=== PATIENT | male | born 1950 | race Caucasian/White ===

== ENCOUNTER 2024-03-30 12:32 | Outpatient (OUT) | payer MEDICARE, SELFPAY ==
--- NOTE | 2024-03-30 13:00 | CA_ITS ---
Patient Name: GIACOMO VOGEL MR#: [id number] : 1950 Exam Date: 03/30/2024 Ordering Doctor: DR SAKINA CHANDRA M.D. ECHOCARDIOGRAM REPORT PROCEDURE: CA ECHO DOPPLER COMPLETE INDICATIONS: Dyspnea, COPD, smoker COMPARISON: None. DESCRIPTION: COMPLETE ECHOCARDIOGRAM Real-time transthoracic echocardiography with 2D, M-mode, spectral and color flow Doppler performed. QUALITY: Technical quality was good. 69 , 146#, BP 142/88 LEFT VENTRICLE: Normal chamber size. Thickened septal wall. LV EF: Global LV systolic function is normal; visually estimated ejection fraction is 60 to 65%. No significant wall motion abnormalities. DIASTOLIC: Unable to assess diastolic function. ATRIAL SEPTUM: Visually appears intact. LEFT ATRIUM: Normal chamber size. RIGHT ATRIUM: Normal chamber size. RIGHT VENTRICLE: Normal chamber size. Normal right ventricular systolic function. TRICUSPID VALVE: Normal mobility and thickness. No stenosis with no regurgitation. Unable to assess right-sided pressures due to lack of measurable tricuspid regurgitation. MITRAL VALVE: Mildly thickened with normal mobility. No evidence of mitral valve stenosis. Mild mitral annular calcification. No mitral regurgitation. AORTIC VALVE: Normal trileaflet appearance. Severely calcified aortic valve. Doppler velocity suggests mild aortic valve stenosis. Trivial aortic regurgitation. AORTIC ROOT: Aorta is dilated at Sinuses of Valsalva (4.1 cm). Ascending aorta is normal in size. PULMONIC VALVE: Normal thickness and mobility. No stenosis. No regurgitation. PERICARDIUM: Anterior free space; trivial effusion versus fat pad. IVC: Collapses with inspirations. CONCLUSION: 1. Global left ventricular systolic function is normal; visually estimated ejection fraction is 60 to 65% 2. Normal right ventricular size and systolic function 3. Mild aortic valve stenosis 4. Mildly dilated aortic root 5. Anterior free space; trivial effusion versus fat pad Adult Echocardiography Procedure Report Left Ventricle LVEDD (3.7 - 5.6 cm): 4.63 cm LVESD (2.2 - 4.0 cm): 3.23 cm LVIVS thickness (0.6 - 1.2 cm): 1.26 cm LVPW thickness (0.5 - 1.0 cm): 1.00 cm E - e': 7.98 LVOT Max Gradient: 3.20 mm[Hg] LVOT Area (cm2): 0.89 m/s Peak Velocity (LVOT): 0.89 m/s Mean Velocity (LVOT): 0.60 m/s LVOT Diameter 2.00 cm Left Atrium LA Volume Index (2D A2C): 23.79 ml/m2 Left Atrium Systolic Dimension: 3.63 cm Mitral Valve MV E to A Ratio: 0.83 Mitral Valve A-Wave Peak Velocity: 0.80 m/s Mitral Valve E-Wave Peak Velocity: 0.66 m/s Right Ventricle Aorta AO Root Diam: 4.11 cm Ascending Ao Diam: 3.33 cm Aortic Valve AoV Area (Peak Pedro): 1.36 cm2, 1.42 cm2 AoV Area (VTI): 1.69 cm2, 1.90 cm2 Peak Velocity(Antegrade Flow): 1.98 m/s, 2.06 m/s Peak Gradient(Antegrade Flow): 15.62 mm[Hg], 16.97 mm[Hg] Mean Velocity(Antegrade Flow): 1.19 m/s, 1.28 m/s Mean Gradient(Antegrade Flow): 6.77 mm[Hg], 7.82 mm[Hg] Velocity Time Integral: 33.74 cm, 38.01 cm Tricuspid Valve Pulmonic Valve Peak Gradient: 2.65 mm[Hg], 2.95 mm[Hg] Right Atrium Right Atrium Systolic Pressure: 28.33 ml, 28.33 ml Dictated by: Jono Dowell M.D. on 03/31/2024 at 13:21 Approved by: Jono Dowell M.D. on 03/31/2024 at 13:26
== END 2024-03-30 12:33 | disposition home or self-care (01) ==
LOC: CARD 12:32
PROVIDERS: Visit Provider Internal Medicine Interventional Cardiology
DX: R06.02 Shortness of breath (principal)
CPT/HCPCS: 93306

== ENCOUNTER 2024-04-15 10:35 | Outpatient (OUT) | payer MEDICARE, SELFPAY ==
--- OUTSIDE RECORDS SUMMARY | 2024-04-15 10:44 | XMS_ITS | CCD ---
Author Organization [facility] Care Team Providers Care Electrical And Instrument Engineer Name Role Phone Diann Kirk MD Primary Care Provider DIANN KIRK Attending Unavailable DIANN KIRK Referring Unavailable SYDNI KIRKHAMRANDI Tovar Primary Care Unavailable LAKHWINDER ARENAS Attending Unavailable JUVE WALKER Referring Unavailable YELENA, MUHAMID La Primary Care Unavailable JUVE WALKER Attending Unavailable JESU JEAN Referring Unavailable YELENA, MUHAMID M Primary Care Unavailable JUVE WALKER Referring Unavailable YELENA, MUHAMID M Primary Care Unavailable LAKHWINDER ARENAS Attending Unavailable LAKHWINDER ARENAS Referring Unavailable YELENA, MUHAMID M Primary Care Unavailable LAKHWINDER ARENAS Attending Unavailable LAKHWINDER ARENAS Referring Unavailable YELENA, MUHAMID M Primary Care Unavailable SAKINA CHANDRA Attending Unavailable Medications Current Medications Medication Drug Class(es) Dates Sig (Normalized) Sig (Original) [id number] 200 actuat albuterol 0.09 mg/actuat metered dose inhaler (14 sources) beta2-Adrenergic Agonist Start: 11-03-2023 End: 01-25-2024 take 2 puff(s) by mouth every six hours as needed for wheezing albuterol (PROVENTIL HFA;VENTOLIN HFA) 90 mcg/actuation inhaler Indications: Pulmonary emphysema, unspecified emphysema type ([facility]) INHALE 2 PUFFS BY MOUTH EVERY 6 HOURS NEEDED FOR WHEEZING OR SHORTNESS OF BREATH 18 g 3 01/25/2024 Active Start: 08-06-2023 End: 11-03-2023 take 2 puff(s) by inhalation every six hours as needed for wheezing albuterol (PROVENTIL HFA;VENTOLIN HFA) 90 mcg/actuation inhaler Indications: Pulmonary emphysema, unspecified emphysema type (CMS-HCC) Inhale 2 puffs every 6 (six) hours as needed for wheezing or shortness of breath. 18 g 3 08/06/2023 11/03/2023 Discontinued amLODIPine 5 mg oral tablet (11 sources) Dihydropyridine Calcium Channel Phyllis Start: 12-28-2023 take 1 tablet by mouth in the morning amLODIPine (NORVASC) 5 mg tablet Take 1 tablet (5 mg total) by mouth in the morning. 90 tablet 3 12/28/2023 Active Start: 10-30-2023 take 1 tablet by mt th in the morning amLODIPine (NORVASC) 5 mg tablet Take 1 tablet (5 mg total) by mouth in the morning. 30 tablet 3 10/30/2023 Active amoxicillin 500 mg oral capsule (4 sources) Penicillin-class Antibacterial Start: 12-14-2023 End: 12-24-2023 take 1 capsule by mouth three times daily amoxicillin (AMOXIL) 500 mg capsule Indications: Dental infection Take 1 capsule (500 mg total) by mouth 3 (three) times a day for 10 days. 30 capsule 0 12/14/2023 12/24/2023 Active aspirin 81 mg delayed release oral tablet (11 sources) Platelet Aggregation Inhibitor, Nonsteroidal Anti-inflammatory Drug take 1 tablet by mouth in the morning aspirin 81 mg Take 1 tablet (81 mg total) by mouth in the morning. 0 Active atorvastatin 40 mg oral tablet (12 sources) HMG-CoA Reductase Inhibitor Start: 11-11-2023 End: 11-17-2023 take 1 tablet by mouth in the morning atorvastatin (LIPITOR) 40 mg tablet Indications: Dyslipidemia Take 1 tablet (40 mg total) by mouth in the morning. 90 tablet 11 11/17/2023 Active Start: 10-30-2023 take 1 tablet by mt th in the morning atorvastatin (LIPITOR) 20 mg tablet Take 1 tablet (20 mg total) by mouth in the morning. 30 tablet 11 10/30/2023 Active 120 actuat budesonide 0.16 mg/actuat / formoterol fumarate 0.0048 mg/actuat / glycopyrrolate 0.009 mg/actuat metered dose inhaler (13 sources) Corticosteroid, beta2-Adrenergic Agonist Start: 09-17-2023 End: 11-06-2023 take 1 puff(s) by inhalation once daily kirusiopdf-rakfpixu-mimnzcohch (BREZTRI AEROSPHERE) 160-9-4.8 mcg/actuation HFA aerosol inhaler Indications: Pulmonary emphysema, unspecified emphysema type (CMS-HCC) INHALE 1 PUFF EVERY DAY 10.7 g 2 11/06/2023 Active chlorhexidine gluconate 1.2 mg/ml mouthwash (12 sources) Start: 09-17-2023 take 15 mL by mouth in the morning chlorhexidine (PERIDEX) 0.12 % solution Indications: Oral hygiene poor , Dental infection Apply 15 mL to the mouth or throat in the morning and 15 mL before bedtime. 473 mL 1 09/17/2023 Active cilostazol 100 mg oral tablet (9 sources) Phosphodiesterase 3 Inhibitor Start: 11-17-2023 take 1 tablet by mouth in the morning, then take 1 tablet by mouth at bedtime cilostazoL (PLETAL) 100 mg tablet Indications: Claudication ([facility]) Take 1 tablet (100 mg total) by mouth in the morning and 1 tablet (100 mg total) before bedtime. 180 tablet 2 11/17/2023 Active 24 hr fexofenadine hydrochloride 180 mg / pseudoephedrine hydrochloride 240 mg extended release oral tablet (14 sources) alpha-Adrenergic Agonist, Histamine-1 Receptor Antagonist Start: 08-06-2023 End: 12-15-2023 take 1 tablet by mouth once in the morning fexofenadine-pseudoephedrine (KARLA-D 24) 180-240 mg per 24 hr tablet Indications: Allergy, subsequent encounter Take 1 tablet by mouth in the morning. 90 tablet 1 12/15/2023 Active metoprolol tartrate 25 mg oral tablet (11 sources) beta-Adrenergic Phyllis Start: 10-30-2023 take 0.5 tablet by mouth in the morning, then take 0.5 tablet by mouth at bedtime metoprolol tartrate (LOPRESSOR) 25 mg tablet Take 0.5 tablets (12.5 mg total) by mouth in the morning and 0.5 tablets (12.5 mg total) before bedtime. 180 tablet 3 10/30/2023 Active mirtazapine 15 mg disintegrating oral tablet (13 sources) Start: 09-30-2023 End: 11-06-2023 mirtazapine (REMERON BETTY-TAB ) 15 mg disintegrating tablet Indications: Drug-induced insomnia (CMS-HCC) DISSOLVE 1 TABLET(15 MG) ON THE TONGUE EVERY NIGHT 90 tablet 2 11/06/2023 Active 24 hr nicotine 0.583 mg/hr transdermal system (12 sources) Cholinergic Nicotinic Agonist Start: 03-26-2023 apply 1 dose transdermal route once daily nicotine (NICODERM CQ) 14 mg/24 hr Indications: Tobacco abuse Place 1 patch on the skin daily. 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, in remission] Onset: 02-26-2023 02-26-2023 Chronic Chronic obstructive pulmonary disease and bronchiectasis (5 sources) Pulmonary emphysema; Translations: [Emphysema, unspecified] Onset: 11-06-2023 11-01-2023 Chronic Disorders of lipid metabolism (2 sources) Dyslipidemia; Translations: [Hyperlipidemia, unspecified] Onset: 11-17-2023 11-17-2023 Chronic Essential hypertension (17 sources) Essential hypertension; Translations: [Essential (primary) hypertension] Onset: 02-26-2023 02-26-2023 Chronic Occlusion or stenosis of precerebral arteries (3 sources) Bilateral stenosis of carotid arteries; Translations: [Occlusion and stenosis of bilateral carotid arteries] Onset: 01-04-2024 12-16-2023 Chronic Other circulatory disease (4 sources) Personal history of transient ischemic attack (TIA), and cerebral infarction without residual deficits; Translations: [Personal history of transient ischemic attack (TIA), and cerebral infarction without residual deficits] Onset: 02-26-2023 Episodic Other injuries and conditions due to external causes (2 sources) Allergic condition; Translations: [Allergy, unspecified, subsequent encounter] 11-06-2023 Episodic Other injuries and conditions due to external causes (1 source) Allergy, unspecified, subsequent encounter; Translations: [Allergy, unspecified, subsequent encounter] Onset: 11-06-2023 Episodic Other lower respiratory disease (2 sources) Shortness of breath; Translations: [Shortness of breath] Onset: 01-04-2024 Episodic Other screening for suspected conditions (not mental disorders or infectious disease) (4 sources) Abnormal results of cardiovascular function studies; Translations: [Abnormal result of cardiovascular function study, unspecified] Onset: 10-30-2023 11-17-2023 Episodic Peripheral and visceral atherosclerosis (16 sources) Intermittent claudication; Translations: [Peripheral vascular disease, unspecified] Onset: 11-06-2023 11-06-2023 Chronic Screening and history of mental health and substance abuse codes (1 source) Personal history of nicotine dependence; Translations: [Personal history of nicotine dependence] Onset: 10-30-2023 Episodic Substance-related disorders (2 sources) Drug-induced insomnia; Translations: [Other psychoactive substance use, unspecified with psychoactive substance-induced sleep disorder] Onset: 11-06-2023 11-06-2023 Episodic Unclassified (2 sources) New Patient Onset: 10-30-2023 Past or Other Problems Problem Classification Problem Date Documented Date Episodic/Chronic Disorders of teeth and jaw (13 sources) Dental caries; Translations: [Dental caries, unspecified] Onset: 05-04-2023 05-04-2023 Episodic Mood disorders (12 sources) Mood disorders Onset: 06-22-2023 06-22-2023 Other circulatory disease (13 sources) History of cerebrovascular accident; Translations: [Personal history of transient ischemic attack (TIA), and cerebral infarction without residual deficits] Onset: 02-26-2023 02-26-2023 Episodic Other nutritional; endocrine; and metabolic disorders (12 sources) Weight loss; Translations: [Abnormal weight loss] Onset: 02-26-2023 02-26-2023 Episodic Residual codes; unclassified (13 sources) Tobacco user; Translations: [Tobacco use] Onset: 02-26-2023 02-26-2023 Episodic Residual codes; unclassified (1 source) Tobacco use; Translations: [Tobacco use] Onset: 02-26-2023 Episodic Results Test Name Value Interpretation Reference Range [facility] Office Visiton 01-04-2024 Follow-up visit [id number] Georges Michel 1950 M Date Provider Department Center 01/04/2024 Ramy-SAKINA CHANDRA [facility] Family History Problem Relation Age of Onset Other Paternal Grandfather Family Status - Relation Status Age at Paternal Grandfather Level of Service:39410 DE OFFICE/OUTPATIENT NEW MODERATE MDM 45 MINUTES [facility] CT CTA ABD AORTA W RUNOFFon 12-03-2023 CT CTA ABD AORTA W RUNOFF CT CTA ABD AORTA W RUNOFF HISTORY: Claudication, leg ischemia, and sensation bilateral legs, right great toe pain, tobacco use TECHNIQUE: CT CTA ABD AORTA W RUNOFF COMPARISON: Arterial vascular ultrasound 11/09/2023 Contiguous axial images are obtained of the abdomen and pelvis with contrast. Coronal and sagittal reconstructions were performed and reviewed. Sagittal and coronal reformatted images with 3-D Maximum intensity projection reconstructions constructed under concurrent physician supervision on a separate workstation. Automatic exposure control was utilized. All CT scans at this facility use dose modulation, iterative reconstruction, and/or weight based dosing when appropriate to reduce radiation dose to as low as reasonably achievable. FINDINGS: LUNG BASES: Lung bases are clear. No pleural or pericardial effusion. HEPATOBILIARY: Liver and gallbladder unremarkable. No biliary dilation. PANCREAS: Cystic lesion within the head of the pancreas measures 1.4 cm (series 2 image 37). No pancreatic ductal dilation. SPLEEN: Unremarkable. ADRENAL GLANDS: Adrenal glands are unremarkable. KIDNEYS, URETERS, BLADDER: Kidneys are unremarkable. No collecting system dilation. Urinary bladder is unremarkable. BOWEL: Small and large bowel are normal in caliber. Few scattered colonic diverticula. Normal appendix. LYMPH NODES: No enlarged lymph nodes. REPRODUCTIVE: Prostate mildly enlarged. MSK: Age-indeterminate compression deformity of L5. Subtle superior plate height loss L3. Unilateral left L5 spondylolysis, no spondylolisthesis. VASCULATURE: Infrarenal abdominal aortic aneurysm measures 3.1 cm. Eccentric anterior intraluminal thrombus. Celiac, superior mesenteric, inferior mesenteric arteries widely patent. Note, inferior mesenteric artery arises off the aneurysm sac. Renal arteries patent. Right runoff: Calcified atherosclerotic plaques of the common, internal, external iliac arteries, otherwise patent. Common femoral, superficial femoral artery patent. Occlusion of the proximal superficial femoral artery just distal to the bifurcation. There is distal reconstitution at the distal superficial femoral artery/popliteal artery via prominent collaterals. Can confirm three-vessel runoff to the right foot. Left runoff: Calcified atherosclerotic plaques of the common, internal, external iliac arteries, otherwise patent. Fusiform dilation of the internal iliac artery, 1 cm. Common femoral artery and profunda patent. Occlusion of the superficial femoral artery immediately distal to the bifurcation. Short segment distal reconstitution of the distal superficial femoral artery (series 2 images 225-247). Occlusion of the proximal popliteal artery, with reconstitution at the level of the distal femur. Can confirm two-vessel runoff to the left foot. Questionable occlusion of the distal posterior tibial artery (series 6 images 87, 88). IMPRESSION: * Confirmed two-vessel runoff to the left foot, likely occlusion of the distal posterior tibial artery. Occlusion of the left superficial femoral and popliteal arteries with reconstitution at the proximal popliteal artery via prominent collaterals. * Confirmed three-vessel runoff to the right foot. Occlusion of the proximal right superficial femoral artery with reconstitution just proximal to the popliteal hiatus. * Abdominal aortic aneurysm measuring up to 3.1 cm in axial diameter. Heavy calcific plaque and thrombus. Recommend follow-up CTA or MRA in 3 years. Neither * Incidental pancreatic cystic lesion measuring 1.4 cm. Recommend imaging follow-up with contrast-enhanced MRI or pancreas-protocol CT every 2 years for 10 years. Consider stopping follow-up at age 80, depending on co-morbidities and patient preferences. * Age-indeterminate compression deformity L5 vertebra, favor chronic. Correlate with focal tenderness. CITATIONS: Farrukh WILEY, et al. Management of Incidental Pancreatic Cysts: A White Paper of the ACR Incidental Findings Committee. J Am Dex Radiol Based on: Teresa He, et al. Managing Incidental Findings on Abdominal and Pelvic CT and MRI, Part 2: White Paper of the ACR Incidental Findings Approved by Resident Jerome Vogt DO on 2023 2:25 PM ICain MD have personally reviewed the image(s) and agree with and/or edited the report Finalized by Cain Urbina MD on 12/03/2023 8:14 AM Normal [facility] Vital Signs Date Time Vital Sign Value Performing Clinician Aaron jacobson 11-17-2023 16:29-0500 Diastolic blood pressure 82 mm[Hg] Lakhwinder Arenas MD Work Phone: [facility] 11-17-2023 16:29-0500 Systolic blood pressure 136 mm[Hg] Lakhwinder Arenas MD Work Phone: [facility] 11-17-2023 16:25-0500 Body height 175.3 cm Lakhwinder Arenas MD Work Phone: [facility] 11-17-2023 16:25-0500 Body mass index (BMI) [Ratio] 20.37 kg/m2 Lakhwinder Arenas MD Work Phone: [facility] 11-17-2023 16:25-0500 Body weight 62.6 kg Lakhwinder Arenas MD Work Phone: [facility] 11-06-2023 10:23-0500 Body height 175.3 cm Diann Kirk MD Work Phone: [facility] 11-06-2023 10:23-0500 Body mass index (BMI) [Ratio] 20.47 kg/m2 Diann Kirk MD Work Phone: [facility] 11-06-2023 10:23-0500 Body temperature 97.5 [degF] Diann Kirk MD Work Phone: [facility] 11-06-2023 10:23-0500 Body weight 62.87 kg Diann Kirk MD Work Phone: [facility] 11-06-2023 10:23-0500 Diastolic blood pressure 88 mm[Hg] Diann Kirk MD Work Phone: [facility] 11-06-2023 10:23-0500 Heart rate 82 /min Diann Kirk MD Work Phone: [facility] 11-06-2023 10:23-0500 SaO2% (BldA) [Mass fraction] 94 % Diann Kirk MD Work Phone: [facility] 11-06-2023 10:23-0500 Systolic blood pressure 162 mm[Hg] Diann Kirk MD Work Phone: [facility] Encounters Encounter Date Encounter Type Care Provider Facility Start: 01-25-2024 Refill Diann Kirk MD Work Phone: [facility] Comment on above: Pulmonary emphysema, unspecified emphysema type ([facility]) Start: 01-04-2024 End: 01-04-2024 [facility] Start: 12-25-2023 Telephone encounter Pam Moore [facility] Start: 12-16-2023 Orders Only Susan Banks [facility] Comment on above: Bilateral carotid ar loi stenosis (Primary Dx) Start: 12-15-2023 Refill Silva Kathrin [facility] Comment on above: Allergy, subsequent encounter Start: 12-14-2023 Orders Only Diann Kirk MD Work Phone: [facility] Comment on above: Dental infection (Pr imary Dx) Start: 12-10-2023 Telephone encounter Trina bolden RN Work Phone: [facility] Comment on above: Care Navigation Start: 2023 End: 12-03-2023 ambulatory [facility] Start: 11-17-2023 End: 11-17-2023 ambulatory [facility] Start: 11-17-2023 End: 11-17-2023 Office outpatient visit 25 minutes Lakhwinder Arenas MD Work Phone: [facility] Comment on above: Claudication ([facility]) (Primary Dx); History of CVA (cerebrovascular accident); Abnormal result of cardiovascular function study, unspecified; Primary hypertension; Tobacco abuse; Dyslipidemia Start: 11-09-2023 End: 11-10-2023 [facility] Start: 11-06-2023 End: 11-06-2023 ambulatory [facility] Start: 11-06-2023 End: 11-06-2023 Office outpatient visit 25 minutes Diann Kirk MD Work Phone: [facility] Comment on above: Pulmonary emphysema, unspecified emphysema type (CMS-HCC) (Primary Dx); Allergy, subsequent encounter; Drug-induced insomnia (CMS-HCC); Claudication (CMS-HCC) Start: 11-01-2023 Refill Diann Kirk MD Work Phone: [facility] Comment on above: Pulmonary emphysema, unspecified emphysema type ([facility]) Start: 10-30-2023 End: 10-30-2023 [facility] Start[facility] 10-29-2023 Telephone encounter [facility] Procedures Date Procedure Procedure Detail Performing Clinician Start: 06-22-2023 Adult depression scr eening assessment Fariba IBRAHIM Plan of Treatment Date Care Activity Detail Author Start: 12-28-2024 Adult BMI Screening Adult [facility] Screening [facility] Start: 12-28-2024 Tobacco Screening Tobacco Screening [facility] Start: 11-17-2024 Adult BMI Screening Adult BMI Screening [facility] Start: 11-17-2024 Tobacco Screening Tobacco Screening [facility] Start: 10-30-2024 Adult BMI Screening Adult BMI Screening [facility] Start: 10-30-2024 Tobacco Screening Tobacco Screening [facility] Start: 09-09-2024 Adult BMI Screening Adult BMI Screening [facility] Start: 09-09-2024 Tobacco Screening Tobacco Screening [facility] Start: 08-28-2024 Tobacco Counseling Tobacco Counseling [facility] Start: 06-23-2024 End: 06-23-2024 Patient encounter procedure 06/23/2024 11:00 AM EDT Office Visit [facility] [address] [place] [phone] Diann Kirk MD [address] [id number] [facility] Start: 06-22-2024 Depression Screening [facility]ening [facility] Start: 06-22-2024 Fall Risk Screening Fall Risk Screening [facility] Start: 06-22-2024 Medicare Annual Wellness Visit Medicare Annual Wellness Visit [facility] Start: 03-29-2024 End: 03-29-2024 Patient encounter procedure 03/29/2024 2:10 PM EDT Office Visit [facility] [address] [place] [address] Lakhwinder Arenas MD [address] [place] [address] [facility] Start: 12-28-2023 End: 12-28-2023 Patient encounter procedure 12/28/2023 9:00 AM EST Office Visit [facility] [address] [place] [address] Nia Dao, GRADER OPERATOR-HAND BLOCKER [address] [place] [address] [facility] Start: 12-01-2023 End: 12-01-2023 Patient encounter procedure 12/01/2023 11:00 AM EST Appointment [facility] [address] [place] [phone] [facility] Start: 11-17-2023 End: 11-17-2024 CTA Abdominal Aorta and Bilateral Runoff Vessels W contrast IV CT angiogram abdominal aorta with runoff Imaging Routine Claudication ([facility]) Expected: 11/17/2023, Expires: 11/17/2024 [facility] Comment on above: Expected: 11/17/2023, Expires: Start: 11-17-2023 End: 11-17-2024 US Carotid arteries - bilateral Vas carotid duplex bilateral Vascular Ultrasound Routine History of CVA (cerebrovascular accident) Expected: 11/17/2023, Expires: 11/17/2024 [facility] Work Phone: Comment on above: Expected: 11/17/2023, Expires: Start: 11-09-2023 End: 11-09-2023 Patient encounter procedure 11/09/2023 8:30 AM EST Appointment [facility] [address] [place] [address] [facility] Start: 11-09-2023 Subsequent hospital visit by physician 11/09/2023 8:30 AM EST Hospital Encounter [facility] [address] [place] [address] [facility] Start: 11-06-2023 End: 11-06-2023 Patient encounter procedure 11/06/2023 10:30 AM EST Office Visit [facility] [address] [place] [address] [place] [phone] Diann Kirk MD [address], [facility] [place], [place] [phone] [facility] Start: 10-30-2023 End: 10-30-2023 Patient encounter procedure 10/30/2023 10:30 AM EST Office Visit [facility] [address] [phone] Jesu Jean MD [address] [place] [phone] Juve Walker MD [address] [place], [place] [id number] [facility] Start: 07-03-2023 Influenza vaccination Influenza Vaccine [facility] Start: 2000 Administration of varicella zoster vaccine Zoster (Shingles) Vaccine (1 of 2) [facility] Start: 1969 DTaP,Tdap and Td Vaccines (1 - Tdap) DTaP,Tdap and Td Vaccines (1 - Tdap) [facility] End: 11-17-2024 Creatinine includes GFR, serum Creatinine includes GFR, serum Lab Routine Claudication ([facility]) 1 Occurrences starting 11/17/2023 until 11/17/2024 [facility] Comment on above: 1 Occurrences starting 11/17/2023 until 11/17/2024 Immunizations Immunization Date Immunization Notes Care Provider Jacques miguel 09-05-2017 influenza, injectabl e, quadrivalent, preservative free [facility] [facility] 09-05-2017 influenza virus vaccine, unspecified formulation [place] 11-25-2015 influenza, seasonal, injectable, preservative free [place] [facility] Payers Date Payer Category Payer Medicare [employer] MEDICARE [employer] [place] [id number] 2022-Present [phone] [address] [address] [place] [address] [id number] 2022 Medicare [id number] 1950 Unknown [id number] 6 1950 Unknown [id number] 6 1950 Unknown [id number] 6 1950 Unknown [id number] 6 1950 Unknown [id number] 6 1950 Unknown [id number] 6 Social History Date Type Detail Facility Start: 09-02-2023 [facility] History of tobacco use Cigarette Smoker P [facility] Start: 09-02-2023 End: 11-17-2023 Cigarettes smoked current (pack per day) - Reported 0.5 [facility] Start: 09-02-2023 Tobacco use and exposure Smokeless tobacco non-user [facility] Start: 09-10-2023 End: 12-28-2023 Alcohol intake Ex-drinker (finding) [facility] Start: 09-09-2023 End: 11-17-2023 Tobacco use panel [facility] Adolescent depressio n screening assessment 0 [facility] Start: 02-26-2023 Alcohol Comment sober since 1999 [facility] Start: 1950 [facility]igned [facility] Goals Date Patient Goal Desired Activity /State Personal health goal Comment on above: Formatting of this n ote might be different from the original. Below are four things you can do to prevent falls: Begin an exercise program to improve your leg strength & balance Ask your doctor or pharmacist to review your medicines Get annual eye check-ups & update your eyeglasses Make your home safer by: Removing clutter & tripping hazards Putting railings on all stairs & adding grab bars in the bathroom Having good lighting, especially on stairs Contact your local community or [facility] for information on exercise, fall prevention programs, or options for improving home safety. Clinical Notes 10-29-2023 to 01-04-2024 Telephone Encounter - Pam Moore, [facility] - 12/25/2023 3:17 PM ESTTelephone Encounter - Pam Moore, [facility] - 12/25/2023 3:17 PM Israel Arenas MD - 11/17/2023 4:00 PM EST Note Date & Type Note Facility 01-04-2024 Note [place] [facility] - [facility] Subjective Georges Michel is a 73 y.o. year old male patient being seen to establish care. He was referred by [facility] cardiology for claudication. [facility] doesn't accept his insurance. States his claudication is much better. Smokes 1/2 PPD. Denies chest pain, SOB, and lightheadedness/syncope. Patient Active Problem List Diagnosis Claudication (CMS/HCC) Dental caries History of alcohol abuse History of CVA (cerebrovascular accident) Primary hypertension Tobacco abuse Weight loss Family History Problem Relation Name Age of Onset Other (abdominal aortic aneurysm) Paternal Grandfather Social History Tobacco Use Smoking status: Every Day Packs/day: .5 Types: Cigarettes Smokeless tobacco: Former CARIDAD Georges is seen as a new patient. 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 Review of prior notes indicates presence of a systolic murmur that was planned to be investigated by an echocardiogram that was never done. Prior noninvasive vascular studies showed severely reduced left lower extremity and moderately reduced right lower extremity perfusion. In addition he has bilateral carotid artery stenosis more than 70% by carotid ultrasound November 2023. He was previously evaluated at [facility] vascular medicine and was started on cilostazol. He is taking it once daily. Before, he could walk only 40 yards before he had to stop, he says it has increased by 3 fold. He says he is not happy with the current situation. Review of Systems Cardiovascular: Positive for claudication. Musculoskeletal: Positive for arthritis, back pain and joint pain. Allergic/Immunologic: Positive for environmental allergies. All other systems reviewed and are negative. Objective Visit Vitals BP (!) 160/92 (BP Location: Left arm, Patient Position: Sitting) Pulse 92 Ht 1.753 m (5' 9 ) Wt 65.3 kg (144 lb) SpO2 95% BMI 21.27 kg/m??? Smoking Status Every Day BSA 1.78 m??? Physical Exam Constitutional: Appearance: He is well-developed. He is not ill-appearing. HENT: Head: Normocephalic and atraumatic. Nose: Nose normal. Eyes: General: No scleral icterus. Pupils: Pupils are equal, round, and reactive to light. Neck: Thyroid: No thyromegaly. Vascular: No JVD. Cardiovascular: Rate and Rhythm: Normal rate and regular rhythm. Pulses: Radial pulses are 2+ on the right side and 2+ on the left side. Heart sounds: Murmur heard. Systolic (RUSB) murmur is present with a grade of 3/6. No friction rub. No gallop. Pulmonary: Effort: Pulmonary effort is normal. No respiratory distress. Breath sounds: Normal breath sounds. No wheezing or rales. Chest: Chest wall: No tenderness. Abdominal: General: Bowel sounds are normal. There is no distension. Palpations: Abdomen is soft. Tenderness: There is no abdominal tenderness. Musculoskeletal: General: No swelling. Cervical back: Neck supple. Skin: General: Skin is warm and dry. Neurological: General: No focal deficit present. Mental Status: He is alert and oriented to person, place, and time. Psychiatric: Mood and Affect: Mood normal. Behavior: Behavior is cooperative. Judgment: Judgment normal. Allergies No Known Allergies Medications Current Outpatient Medications: Karla-D 24 Hour 180-240 mg 24 hr tablet, Take 1 tablet by mouth in the morning., Disp: , Rfl: aspirin 81 mg EC tablet, Take 81 mg by mouth in the morning., Disp: , Rfl: atorvastatin (Lipitor) 40 mg tablet, at bedtime., Disp: , Rfl: cilostazol (Pletal) 100 mg tablet, TAKE 1 TABLET BY MOUTH EVERY MORNING AND 1 TABLET EVERY NIGHT AT BEDTIME, Disp: , Rfl: mirtazapine (Remeron Betty-Tab) 15 mg disintegrating tablet, DISSOLVE 1 TABLET(15 MG) ON THE TONGUE EVERY NIGHT, Disp: , Rfl: nicotine (Nicoderm CQ) 14 mg/24 hr patch, APPLY 1 PATCH TOPICALLY TO THE SKIN DAILY, Disp: , Rfl: amLODIPine (Norvasc) 10 mg tablet, Take 1 tablet (10 mg) by mouth in the morning., Disp: 90 tablet, Rfl: 3 metoprolol tartrate (Lopressor) 25 mg tablet, Take 1 tablet (25 mg) by mouth in the morning and at bedtime., Disp: 180 tablet, Rfl: 3 Recent Labs Blood testing 02/26/2023: Component Ref Range & Units 10 mo ago Cholesterol 150 - 200 mg/dL 176 Triglycerides 27 - 150 mg/dL 130 HDL Cholesterol >39 mg/dL 36 Low Comment: HDL <40 mg/dL - High Risk HDL > or = 40mg/dL- Desirable HDL >60 mg/dL - Negative Risk VLDL 0 - 30 mg/dL 26 LDL (calc) <130 mg/dL 114 Comment: LDL <100 mg/dL - Desirable LDL >160 mg/dL - High Risk Cholesterol:HDL Ratio 1.0 - 5.0 4.9 Sodium 134 - 146 mmol/L 140 Potassium, Bld 3.5 - 5.0 mmol/L 4 (more content not included)... [facility]23 Miscellaneous Notes Called patient to remind them to bring their most current copy of their medication list with them to their appt. Patient verbalizes understanding. documented in this encounter [facility] 12-25-2023 Telephone encounter Note Called patient to remind them to bring their most current copy of their medication list with them to their appt. Patient verbalizes understanding. [facility] 12-16-2023 Miscellaneous Notes Called and spoke with the patient about scheduling CTA of the Carotid. Patient stated that due to his insurance being out of network he has seeked out another provider in his network at [facility] to see. He does not want to schedule with our office at this time. I did inform him if he changed his mind to please give us a call. All future appointments have been cancelled. Can he be seen by in [place]? Severe bilateral carotid stenosis. -Lakhwinder Unfortunately no, He stated he called his insurance company and asked who was in network. It was none of out doctors. documented in this encounter [facility] 12-16-2023 Telephone encounter Note Called and spoke with the patient about scheduling CTA of the Carotid. Patient stated that due to his insurance being out of network he has seeked out another provider in his network at [facility] to see. He does not want to schedule with our office at this time. I did inform him if he changed his mind to please give us a call. All future appointments have been cancelled. [facility] 12-16-2023 Telephone encounter Note Can he be seen by in [place]? Severe bilateral carotid stenosis. -Lakhwinder [facility] 12-16-2023 Telephone encounter Note Unfortunately no, He stated he called his insurance company and asked who was in network. It was none of out doctors. [facility] 12-14-2023 Miscellaneous Notes Patient called into office stating that he has been up all night in pain with an infected tooth. He stated that the dentist will not prescribe him an antibiotic. Patient is wondering if something can be called in to help heal this or if he is going to be needed to be seen. Please advise. Rx/order sent to pharmacy for amoxicillin Lizeth JULIAN: This request should go to someone who is in the clinic with teams or verbal heads up so they can make a same day decision and it doesn't get missed in the inbox. Please call and notify patient. Thanks, DIANN KIRK MD 12/14/23 Called patient and informed him. He stated understanding. documented in this encounter [facility] 12-14-2023 Telephone encounter Note Patient called into office stating that he has been up all night in pain with an infected tooth. He stated that the dentist will not prescribe him an antibiotic. Patient is wondering if something can be called in to help heal this or if he is going to be needed to be seen. Please advise. [facility] 12-14-2023 Telephone encounter Note Rx/order sent to pharmacy for amoxicillin Lizeth QUIROSI: This request should go to someone who is in the clinic with teams or verbal heads up so they can make a same day decision and it doesn't get missed in the inbox. Please call and notify patient. Thanks, DIANN KIRK MD 12/14/23 [facility] 12-14-2023 Telephone encounter Note Called patient and informed him. He stated understanding. [facility] 12-10-2023 Miscellaneous Notes Office asked proposal manager writer to reach out to patient regarding concerns for his appointments and keeping things straight. Patient was at grocery store when proposal manager writer called and he will call back when he gets home, or we can talk tomorrow, Thursday. 12/11/23- spoke with patient and concern is that [facility] Cardiology and V[facility] teams are OON with [employer]. Patient would like to go to [place]. Bill would also like Head Of Sales And Marketing make appointments for him and let him know. Called [place] and yes, they are in network. Referrals for Cardiology and Vascular faxed as well as visit notes, demo, and recent results. Also asked for them to call Trina VILLA RN to scheduled appointments. documented in this encounter [facility] 12-10-2023 Telephone encounter Note Office asked proposal manager writer to reach out to patient regarding concerns for his appointments and keeping things straight. Patient was at grocery store when proposal manager writer called and he will call back when he gets home, or we can talk tomorrow, Thursday. 12/11/23- spoke with patient and concern is that [facility]iology and V[facility] teams are OON with [employer]. Patient would like to go to [place]. Bill would also like Head Of Sales And Marketing make appointments for him and let him know. Called [place] and yes, they are in network. Referrals for Cardiology and Vascular faxed as well as visit notes, demo, and recent results. Also asked for them to call Trina VILLA RN to scheduled appointments. [employer] Work Phone: 11-17-2023 History of Presen t illness Narrative Images from the original note were not included. [facility] [address] [place] [address] Subjective: Patient ID: Georges Michel is a 72 y.o. male. 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 pt History of Present Illness: Thank you for referring patient Georges Michel and for your trust in our practice. Georges Michel is a 72 y.o. pleasant male with history of HTN, DL, smoker, prior CVA who presents today for consultation at the [facility] [place] due to bilateral LE claudication. Patient reports bilateral LE claudication L worse than the right. Has to stop after 40 yards No wounds or ulcers, no rest pain or critical limb ischemia. Patient Active Problem List Diagnosis Weight loss Tobacco abuse History of alcohol abuse History of CVA (cerebrovascular accident) Primary hypertension Dental caries Claudication ([facility]) Current Outpatient Medications: albuterol (PROVENTIL HFA;VENTOLIN HFA) 90 mcg/actuation inhaler, INHALE 2 PUFFS BY MOUTH EVERY 6 HOURS NEEDED FOR WHEEZING OR SHORTNESS OF BREATH, Disp: 18 g, Rfl: 3 amLODIPine (NORVASC) 5 mg tablet, Take 1 tablet (5 mg total) by mouth in the morning., Disp: 30 tablet, Rfl: 3 aspirin 81 mg, Take 1 tablet (81 mg total) by mouth in the morning., Disp: , Rfl: jlathsnbmv-qzaohywc-gagohozgbe (BREZTRI AEROSPHERE) 160-9-4.8 mcg/actuation HFA aerosol inhaler, INHALE 1 PUFF EVERY DAY, Disp: 10.7 g, Rfl: 2 chlorhexidine (PERIDEX) 0.12 % solution, Apply 15 mL to the mouth or throat in the morning and 15 mL before bedtime., Disp: 473 mL, Rfl: 1 fexofenadine-pseudoephedrine (KARAL-D 24) 180-240 mg per 24 hr tablet, Take 1 tablet by mouth in the morning., Disp: 90 tablet, Rfl: 1 metoprolol tartrate (LOPRESSOR) 25 mg tablet, Take 0.5 tablets (12.5 mg total) by mouth in the morning and 0.5 tablets (12.5 mg total) before bedtime., Disp: 180 tablet, Rfl: 3 mirtazapine (REMERON BETTY-TAB) 15 mg disintegrating tablet, DISSOLVE 1 TABLET(15 MG) ON THE TONGUE EVERY NIGHT, Disp: 90 tablet, Rfl: 2 atorvastatin (LIPITOR) 40 mg tablet, Take 1 tablet (40 mg total) by mouth in the morning., Disp: 90 tablet, Rfl: 11 cilostazoL (PLETAL) 100 mg tablet, Take 1 tablet (100 mg total) by mouth in the morning and 1 tablet (100 mg total) before bedtime., Disp: 180 tablet, Rfl: 2 nicotine (NICODERM CQ) 14 mg/24 hr, Place 1 patch on the skin daily. (Patient not taking: Reported on 09/02/2023), Disp: 28 patch, Rfl: 2 Past Medical History: Diagnosis Date Cataract COPD (chronic obstructive pulmonary disease) [place] Stroke (cerebrum) ([facility] 2010 Past Surgical History: Procedure Laterality Date CATARACT EXTRACTION Left COLONOSCOPY DIAGNOSTIC / SCREENING N/A 09/09/2023 Performed by Jesu Jean MD at [facility] HAND / FINGER LESION EXCISION Right 14 yrs old KNEE ARTHROCENTESIS Right 30 years old History reviewed. No pertinent family history. Social History Socioeconomic History Marital status: Single Spouse name: Not on file Number of children: Not on file Years of education: Not on file Highest education level: Not on file Occupational History Not on file Tobacco Use Smoking status: Every Day Packs/day: .5 Types: Cigarettes Smokeless tobacco: Never Vaping Use Vaping Use: Never used Substance and Sexual Activity Alcohol use: Not Currently Comment: sober since 1999 Drug use: Never Sexual activity: Defer Other Topics Concern Caffeine Use Yes Social History Narrative Not on file Social Determinants of Health Financial Resource Strain: Not on file Food Insecurity: No Food Insecurity (11/17/2023) Hunger Screening Food Insecurity - Worry: Never True Food Insecurity - Inability: Never True Transportation Needs: Not on file Physical Activity: Not on file Stress: Not on file Social Connections: Not on file Interpersonal Safety: Not on file No Known Allergies The following portions of the patient's history were reviewed and updated as appropriate: allergies, current medications, past family history, past medical history, past social history, past surgical history and problem list. Review of Systems: Review of Systems Objective: Vitals BP 136/82 (BP Site: Left Arm, BP Postition: Sitting, BP CUFF SIZE: M (9-13 inches)) Ht 175.3 cm (5' 9.02 ) Wt 62.6 kg (138 lb) BMI 20.37 kg/m Physical Exam General appearance: awake, alert, oriented, no acute distress HEENT: carotid bruit bilaterally CV: RRR, no murmurs PULM: CTAB, no wheezing ABD: soft, NT/ND, no masses NEURO: Negative for focal deficit, weakness or loss of sensation. EXT: No deformities or skin discoloration. No clubbing, cyanosis, or edema. Studies Reviewed PVR No results found for: DDIMER Lab Results Component Value Date GLU 92 02/26/2023 CALCIUM 8.7 02/26/2023 SODIUM 140 02/26/2023 K 4.3 02/26/2023 CO2 28 02/26/2023 BUN 13 02/26/2023 CREATININE 1.04 02/26/2023 Lab Results Component Value Date WBC 4.0 02/26/2023 HGB 17.0 02/26/2023 HCT 49.6 (H) 02/26/2023 MCV 90 02/26/2023 PLT 200 02/26/2023 Assesment: Madi was seen today for new patient. Diagnoses and all orders for this visit: Claudication ([facility]) - [facility] - Endovascular/Limb Salvage- Dr. Arenas - CT angiogram abdominal aorta with runoff; Future - Creatinine includes GFR, serum; Future - cilostazoL (PLETAL) 100 mg tablet; Take 1 tablet (100 mg total) by mouth in the morning and 1 tablet (100 mg total) before bedtime. PVR testing reviewed, severe reduced left lower extremity and moderately reduced lower extremity He has significant claudication has to stop after 48 hours. Will start cilostazol. Advised to increase exercise capacity. Will obtain CT abdomen pelvis with runoff. Will follow patient closely History of CVA (cerebrovascular accident) - [facility] - Endovascular/Limb Salvage- Dr. Arenas - Vas carotid duplex bilateral; Future Patient has bilateral carotid bruit. Will obtain carotid duplex. Abnormal result of cardiovascular function study, unspecified - [facility] - Endovascular/Limb Salvage- Dr. Arenas Primary hypertension - [facility] - Endovascular/Limb Salvage- Dr. Arenas Tobacco abuse Discussed smoking cessation extensively Dyslipidemia - atorvastatin (LIPITOR) 40 mg tablet; Take 1 tablet (40 mg total) by mouth in the morning. Continue statins He has 2/6 systolic murmur right upper sternal border, echo already ordered. This note was created with the assistance of a speech recognition program. While intending to generate a timely document that accurately reflects the content of the visit, no guarantee can be provided that every grammatical or spelling mistake has been or will be identified or corrected. Thank you for your understanding. Lakhwinder Arenas MD, MAR, [facility], FACC, RPVI Interventional Cardiology and Endovascular Interventions [facility] documented in this encounter [employer] [facility] 11-06-2023 History of Presen t illness Narrative Images from the original note were not included. [address] [place] [address] D [facility] [id number] Patient: Georges Michel Date of : 1950 Encounter Date: 11/06/2023 SUBJECTIVE: Chief Complaint: Chief Complaint Patient presents with COPD Patient ID: Georges Michel is a 72 y.o. male. Patient presents to the office today for follow-up of Cardiology visit 10/30/2023 and COPD. Patient was referred to Cardiology following ST segment depression finding on EKG prior to screening colonoscopy. Today, patient stated that he does not want heart catheter done. Patient states that he does not want CPR in the event of cardiac or respiratory arrest. Patient's desires are consistent with DNR-CCA. Patient reports that his breathing has improved. Denies SOB. Patient reports that he has not needed to use his Albuterol inhaler since harvest season ended. Patient continues to smoke 10 cigarettes/day. Patient is actively trying to quit. Patient has not been taking Chantix or using nicotine patches but is interested in starting both medications again. Patient reports sleep has improved with Mirtazapine. The following portions of the patient's history were reviewed and updated as appropriate: allergies, current medications, past family history, past medical history, past social history, past surgical history and problem list. PHYSICAL EXAMINATION: Vitals: 11/06/23 1023 BP: 162/88 Pulse: 82 Temp: 36.4 C (97.5 F) SpO2: 94% Weight: 62.9 kg (138 lb 9.6 oz) Height: 175.3 cm (5' 9 ) Physical Exam Constitutional: Appearance: Normal appearance. HENT: Head: Normocephalic and atraumatic. Eyes: Extraocular Movements: Extraocular movements intact. Cardiovascular: Rate and Rhythm: Normal rate and regular rhythm. Heart sounds: Murmur (holosystolic, blowing, loudest in aortic region) heard. Pulmonary: Effort: Pulmonary effort is normal. Breath sounds: Normal breath sounds. Neurological: Mental Status: He is alert. ASSESSMENT/PLAN: Bill was seen today for copd. Diagnoses and all orders for this visit: 1. Pulmonary emphysema, unspecified emphysema type (CMS-HCC) - Breathing is well-controlled with current medication. Patient has not needed albuterol inhaler. - kcizbfxsjx-juwfjfrl-qvwezuvzpe (BREZTRI AEROSPHERE) 160-9-4.8 mcg/actuation HFA aerosol inhaler; INHALE 1 PUFF EVERY DAY Dispense: 10.7 g; Refill: 2 2. Allergy, subsequent encounter - Patient reports allergies have improved following harvest season. He continues to use karla as prescribed. - fexofenadine-pseudoephedrine (KARLA-D 24) 180-240 mg per 24 hr tablet; Take 1 tablet by mouth in the morning. Dispense: 90 tablet; Refill: 1 3. Drug-induced insomnia (CMS-HCC) - Patient reports he is sleeping well with the mirtazapine - mirtazapine (REMERON BETTY-TAB) 15 mg disintegrating tablet; DISSOLVE 1 TABLET(15 MG) ON THE TONGUE EVERY NIGHT Dispense: 90 tablet; Refill: 2 All [place], [place]3 This patient was seen and evaluated in conjunction with medical student. All history and exam was independently verified. I agree with all the above documentation. DIANN KIRK MD [facility] 11/06/23 This note was completed with voice recognition software. The document was reviewed for errors however some may still be present. Please do not hesitate to contact/Epic msg the author to verify any questions/concerns. documented in this encounter [facility] 10-29-2023 Miscellaneous Notes Called patient to remind them to bring their most current copy of their medication list with them to their appt. Patient verbalizes understanding. documented in this encounter [facility] 10-29-2023 Telephone encounter Note Called patient to remind them to bring their most current copy of their medication list with them to their appt. Patient verbalizes understanding. [facility] Evaluation note Diagnosis Pulmonary emphysema, unspecified emphysema type ([facility]) [facility] Diagnosis Pulmonary emphysema, unspecified emphysema type (CMS-HCC)- Primary Allergy, subsequent encounter Drug-induced insomnia (CMS-HCC) Claudication ([facility]) Unspecified peripheral vascular disease [facility] Diagnosis Claudication (CMS-HCC)- Primary Unspecified peripheral vascular disease History of CVA (cerebrovascular accident) Transient ischemic attack (TIA), and cerebral infarction without residual deficits Abnormal result of cardiovascular function study, unspecified Primary hypertension Unspecified essential hypertension Tobacco abuse Tobacco use disorder Dyslipidemia Other and unspecified hyperlipidemia [facility] Diagnosis Dental infection- Primary [facility] Diagnosis Allergy, subsequent encounter documented in this encounter [facility] Diagnosis Bilateral carotid artery stenosis- Primary Occlusion and stenosis of carotid artery without mention of cerebral infarction [facility] this [facility] Diagnosis Pulmonary emphysema, unspecified emphysema type ([facility]) documented [facility] this encounter [facility] this [facility] filedocumented in this [facility] filedocumented in this [facility] filedocumented in this [facility] filedocumented in this [facility] filedocument[facility] Summary Purpose Family History No Family History Records FoundNo Family History Records FoundNo Family History Records FoundNo Family History Records Found Advance Directives No Advanced Directives Records FoundNo Advanced Directives Records FoundNo Advanced Directives Records FoundNo Advanced Directives Records Found Reason for Referral Specialty Diagnoses / Procedures Referred By Marine vargas Referred To Contact Radiology Diagnoses Claudication ([facility]) Procedures CT angiogram abdominal aorta with runoff Lakhwinder Arenas MD [address] [place] [id number] Referral ID Status Reason Start Date Expiration Date V isits Requested Visits Authorized [id number] Pending Review 11/17/2023 11/16/2024 1 1 Specialty Diagnoses / Procedures Referred By Marine vargas Referred To Contact Diagnoses History of CVA (cerebrovascular accident) Procedures Vas carotid duplex bilateral Lakhwinder Arenas MD [address] [place] [address], [place] [address] Referral ID Status Reason Start Date Expiration Date V isits Requested Visits Authorized [id number] Pending Review 11/17/2023 11/16/2024 1 1 Additional Source Comments Care Teams (unrecognized sec tion and content) Electrical And Instrument Engineer Relationship Specialty Start Date End Date Diann Kirk MD [address] [place] [address] PCP - General Internal Medicine 02/26/23 Electrical And Instrument Engineer Relationship Specialty Start Date End Date Diann Kirk MD [address] [place] [address] PCP - General Internal Medicine 02/26/23 Electrical And Instrument Engineer Relationship Specialty Start Date End Date Diann Kirk MD [address] [place] [address] PCP - General Internal Medicine 02/26/23 Electrical And Instrument Engineer Relationship Specialty Start Date End Date Diann Kirk MD [address] [place] [address] PCP - General Internal Medicine 02/26/23 Electrical And Instrument Engineer Relationship Specialty Start Date End Date Diann Kirk MD [address] [place] [address] PCP - General Internal Medicine 02/26/23 Electrical And Instrument Engineer Relationship Specialty Start Date End Date Diann Kirk MD [address] [place] [address] PCP - General Internal Medicine 02/26/23 Electrical And Instrument Engineer Relationship Specialty Start Date End Date Diann Kirk MD [address] [place] [address] PCP - General Internal Medicine 02/26/23 Electrical And Instrument Engineer Relationship Specialty Start Date End Date Diann Kirk MD [address] [place] [id number] PCP - General Internal Medicine 02/26/23 Reason for Visit (unrecogniz ed section and content) Reason Comments Med Refill Reason Comments COPD Reason Comments 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 pt Specialty Diagnoses / Procedures Referred By Contac t Referred To Contact Cardiology Diagnoses History of CVA (cerebrovascular accident) Abnormal result of cardiovascular function study, unspecified Primary hypertension Claudication ([facility]) Juve Walker MD [address] [place] [address] [facility] [address] [place] [address] Referral ID Status Reason Start Date Expiration Date Visits Requested Visits Authorized [id number] Pending Review Specialty Services Required 11/11/2023 11/10/2024 1 1 Reason Onset Date Comments Care Navigation 12/10/2023 (unrecognized sect ion and content) No Status Records FoundNo Status Records FoundNo Status Records FoundNo Status Records Found INFORMATION SOURCE (unrecogn ized section and content) DATE CREATED AUTHOR [facility]/08/2023 [facility] DATE CREATED AUTHOR AUTHOR'S ORGANIZ ATION 11/19/2023 [place] DATE CREATED AUTHOR AUTHOR'S ORGANIZ ATION 12/06/2023 [facility] DATE CREATED AUTHOR AUTHOR'S ORGANIZ ATION 01/05/2024 [facility] FOR RECORDS PERTAINING TO PATIENTS WHO ARE OR HAVE BEEN ENROLLED IN A CHEMICAL DEPENDENCY/SUBSTANCEABUSE PROGRAM, SOME INFORMATION MAY BE OMITTED. This clinical summary was aggregated from multiple sources. Caution should be exercised in using it in the provision of clinical care. This summary normalizes information from multiple sources, and as a consequence, information in this document may materially change the coding, format and clinical context of patient data. In addition, data may be omitted in some cases. CLINICAL DECISIONS SHOULD BE BASED ON THE PRIMARY CLINICAL RECORDS. [email or web address] provides no warranty or guarantee of the accuracy or completeness of information in this document.
[2024-04-15 11:05] LABS: Basophils Absolute Auto 0.1 10^3/uL (0.0-0.1); Basophils Percent Auto 1.1 % (0.2-2.0); Eosinophils Percent Auto 9.4 % (0.9-7.0); Hematocrit 46.3 % (42.0-54.0); Hemoglobin 15.7 g/dL (14.0-18.0); Immature Granulocytes Abs Auto 0.02 10^3/uL (0.00-0.03); Immature Granulocytes Pct Auto 0.2 % (0.0-0.5); Lymphocytes Absolute Auto 2.3 10^3/uL (1.2-3.8); Lymphocytes Percent Auto 21.9 % (20.5-60.0); Mean Corpuscular HGB Conc 33.9 g/dL (29.9-35.2); Mean Corpuscular Hemoglobin 29.9 pg (25.9-34.0); Mean Corpuscular Volume 88.2 fL (80.0-94.0); Mean Platelet Volume 9.3 fL (9.5-13.5); Monocytes Absolute Auto 0.8 10^3/uL (0.3-0.8); Neutrophils Absolute Auto 6.3 10^3/uL (1.4-6.5); Neutrophils Percent Auto 59.4 % (43.0-75.0); Platelet Count 402 10^3/uL (150-450); Red Blood Count 5.25 10^6/uL (4.70-6.10); Red Cell Distribution Width 13.5 % (11.0-15.0); White Blood Count 10.5 10^3/uL (4.0-11.0)
[2024-04-15 11:26] LABS: Alanine Aminotransferase 16 U/L (16-63); Albumin Globulin Ratio 0.9; Albumin Level 2.9 g/dL (3.4-5.0); Alkaline Phosphatase 164 U/L (46-116); Anion Gap 9.9; Aspartate Amino Transferase 13 U/L (15-37); BUN Creatinine Ratio 9.7; Bilirubin Total 1.1 mg/dL (0.2-1.0); Calcium 8.6 mg/dL (8.5-10.1); Carbon Dioxide 29.1 mmol/L (21.0-32.0); Chloride 107 mmol/L (98-107); Chol HDL Ratio 2.8; Cholesterol 123 mg/dL (<=200); Estimated GFR (African America >60 (>=60); Estimated GFR (Non-African Ame >60 (>=60); Globulin 3.3 g/dL; Glucose 138 mg/dL (74-106); HDL Cholesterol 44 mg/dL (40-60); LDL Cholesterol Calculated 60.6 mg/dL; Sodium 143 mmol/L (136-145); Total Protein 6.2 g/dL (6.4-8.2); Triglycerides 92 mg/dL (<=150); VLDL CHOLESTEROL 18.4 mg/dL
== END 2024-04-15 10:36 | disposition home or self-care (01) ==
LOC: LAB 10:40
PROVIDERS: Visit Provider Internal Medicine Interventional Cardiology
DX: I10 Essential (primary) hypertension (principal)
CPT/HCPCS: 36415; 80053; 80061; 85025

== ENCOUNTER 2024-05-02 15:39 | Outpatient (OUT) | payer MEDICARE, SELFPAY ==
[2024-05-02 16:40] LABS: Calcium 8.5 mg/dL (8.5-10.1); Carbon Dioxide 30.7 mmol/L (21.0-32.0); Chloride 104 mmol/L (98-107); Estimated GFR (African America >60 (>=60); Estimated GFR (Non-African Ame >60 (>=60); Glucose 108 mg/dL (74-106); Potassium 3.7 mmol/L (3.5-5.1); Sodium 142 mmol/L (136-145)
== END 2024-05-02 15:40 | disposition home or self-care (01) ==
LOC: LAB 15:41
PROVIDERS: Visit Provider Internal Medicine Interventional Cardiology
DX: E87.6 Hypokalemia (principal)
CPT/HCPCS: 36415; 80048